=== PATIENT | male | born 1995 | race Two or more races ===

== ENCOUNTER 2017-08-12 02:35 | Emergency (ER) | payer SELFPAY ==
[2017-08-12 02:45] VITALS: BP 131/63; PULSE 85; RESP 18; TEMP 97.8; O2SAT 99; BMI 25.7
--- NOTE | 2017-08-12 03:38 | ED PDOC ---
HPI: Psych/Substance Abuse Time Seen by Provider: 08/12/17 02:58 Chief Complaint (Nursing): Alcohol Ingestion Chief Complaint (Provider): Alcohol Ingestion ED Caveat: Intoxicated History Per: Patient History/Exam Limitations: intoxication Additional Complaint(s): 22 years old male presents to the ED for alcohol intoxication. PMD: non provided Past Medical History Reviewed: Historical Data, Nursing Documentation, Vital Signs Vital Signs: Last Vital Signs Temp 97.8 F 08/12/17 02:44 Pulse 85 08/12/17 02:44 Resp 18 08/12/17 02:44 BP 131/63 08/12/17 02:44 Pulse Ox 99 08/12/17 02:44 - Medical History PMH: No Chronic Diseases - Surgical History Surgical History: No Surg Hx - Family History Family History: States: Unknown Family Hx - Social History Current smoker - smoking cessation education provided: No Alcohol: Social Drugs: Denies - Allergies Allergies/Adverse Reactions: Allergies Allergy/AdvReac Type Severity Reaction Status Date / Time No Known Allergies Allergy Verified 08/12/17 03:05 Review of Systems Review Of Systems: ROS cannot be obtained secondary to pt's inabilty to answer questions. Physical Exam - Reviewed Nursing Documentation Reviewed: Yes Vital Signs Reviewed: Yes - Physical Exam Appears: Positive for: No Acute Distress Head Exam: Positive for: ATRAUMATIC, NORMOCEPHALIC Skin: Positive for: Normal Color, Warm, Dry Eye Exam: Positive for: Normal appearance, EOMI, PERRL ENT: Positive for: Normal ENT Inspection Neck: Positive for: Normal, Supple Cardiovascular/Chest: Positive for: Regular Rate, Rhythm. Negative for: Murmur Respiratory: Positive for: Normal Breath Sounds. Negative for: Respiratory Distress Gastrointestinal/Abdominal: Positive for: Normal Exam, Soft. Negative for: Tenderness Extremity: Positive for: Normal ROM Neurologic/Psych: Positive for: Other (Intoxicated) - ECG O2 Sat by Pulse Oximetry: 99 (RA) Pulse Ox Interpretation: Normal Medical Decision Making Medical Decision Making: Time: 309 Initial Impression: 22 years old male with alcohol abuse. Patient is stable for discharge, a friend is taking him home. Scribe Attestation: Documented by Melba Perry, acting as a scribe for Blas Granados MD. Provider Scribe Attestation: All medical record entries made by the Scribe were at my direction and personally dictated by me. I have reviewed the chart and agree that the record accurately reflects my personal performance of the history, physical exam, medical decision making, and the department course for this patient. I have also personally directed, reviewed, and agree with the discharge instructions and disposition. Disposition - Clinical Impression Clinical Impression: Alcohol intoxication - Disposition Disposition: Routine/Home Disposition Time: 03:10 Condition: STABLE Instructions: Alcohol Use - When Is Drinking a Problem? Forms: [employer] (French)
== END 2017-08-12 03:15 | disposition home or self-care (01) ==
LOC: H.ER 02:35
DX: F10.129 Alcohol abuse with intoxication, unspecified (principal)